=== PATIENT | female | born 1950 | race African-American/Black ===

== ENCOUNTER 2018-05-10 15:09 | Emergency (ER) | payer MEDICAID ==
[~2018-05-10] VITALS: Ht 165.1 cm; Wt 64.0 kg
[2018-05-10] MEDS ORDERED: BACITRACIN ZINC OINT UDPKT TOP ONE (16:30)
[2018-05-10] MEDS ORDERED: TETANUS, DIPHTHERIA, PERTUSSIS VAC/PF 0.5ML (>7YR OLD) IM ONE (16:30)
[2018-05-10] MEDS ORDERED: ONDANSETRON 4MG ODT PO ONE ×2 (16:30→20:15)
[2018-05-10] MEDS ORDERED: MORPHINE SULFATE 10 MG/ML CPJ IM ONE (16:30)
[2018-05-10] MEDS ORDERED: KETOROLAC 30MG/ML VIAL IM ONE (16:30)
[2018-05-10] MEDS ORDERED: CLONIDINE 0.3MG TABLET PO ONE ×2 (20:45→21:30)
[2018-05-10 22:57] VITALS: BP 156/90
== END 2018-05-10 23:00 | disposition home or self-care (01) ==
LOC: ER 15:39
DX: S09.90XA Unspecified injury of head, initial encounter (principal); S20.419A Abrasion of unspecified back wall of thorax, initial encounter; I10 Essential (primary) hypertension; R11.0 Nausea; Z88.0 Allergy status to penicillin; Z90.49 Acquired absence of other specified parts of digestive tract; Y08.89XA Assault by other specified means, initial encounter; Y93.89 Activity, other specified; Y92.89 Other specified places as the place of occurrence of the external cause; Y99.8 Other external cause status
CPT/HCPCS: 70450; 72125; 90471; 90715; 96372; 99284; J1885; J2270; Q0162; Z7610